=== PATIENT | female | born 2005 | race Caucasian/White ===

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

== ENCOUNTER 2024-03-26 18:03 | Emergency (ER) | payer MEDICAID, SELFPAY ==
[2024-03-26] MEDS ORDERED: Ondansetron ODT 4 MG TAB ONE (19:10)
[2024-03-26] MEDS ORDERED: Acetaminophen 500 MG TAB ONE (19:10)
== END 2024-03-26 19:30 | disposition home or self-care (01) ==
LOC: NAV ERS 18:03
DX: J02.9 Acute pharyngitis, unspecified (principal); R11.2 Nausea with vomiting, unspecified
CPT/HCPCS: 87081; 87430; 99284; Q0162